=== PATIENT | male | born 1990 | race American Indian/Alaskan Native ===

== ENCOUNTER 2019-02-28 19:21 | Emergency (ER) | payer SELFPAY ==
[2019-02-28 19:30] VITALS: BP 122/68
--- NOTE | 2019-02-28 19:41 | Emergency Department Report ---
Suture/Staple Removal - HPI Chief Complaint: Laceration/Recheck/Suture Stated Complaint: STICHES REMOVED Time Seen by Provider: 02/28/19 19:28 When Sutures or [place] Placed: 8-10 Days Ago Wound Location: TO LOWER LIP ED Review of Systems ROS: Stated complaint: STICHES REMOVED Other details as noted in HPI Comment: All other systems reviewed and negative ED Past Medical Hx - Past Medical History Previous Medical History?: No - Surgical History Past Surgical History?: No - Social History Smoking Status: Current Every Day Smoker Substance Use Type: Alcohol Suture Removal Exam - Exam General: Vital signs noted. No distress. Alert and acting appropriately. Wound: No Pathologic Erythema, No Tenderness, No Drainage, No Pus, No Wound Dehiscence Other Systems: All other systems reviewed and are unremarkable. ED Course Vital Signs 02/28/19 19:27 Temperature 98.8 F Pulse Rate 85 Respiratory 18 Rate Blood Pressure 122/68 O2 Sat by Pulse 98 Oximetry ED Recheck MDM - Differential Diagnosis Suture/Staple Removal - Medical Decision Making SUTURES REMOVED WITHOUT DIFFICULTY Vital Signs (72 hours) 02/28/19 19:27 Temperature 98.8 F Pulse Rate 85 Respiratory 18 Rate Blood Pressure 122/68 O2 Sat by Pulse 98 Oximetry Critical care attestation.: If time is entered above; I have spent that time in minutes in the direct care of this critically ill patient, excluding procedure time. ED Disposition Clinical Impression: Visit for suture removal Disposition: DC-01 TO HOME OR SELFCARE Is pt being admited?: No Does the pt Need Aspirin: No Condition: Stable Instructions: Suture Removal (ED) Referrals: [facility] [Outside] - 3-5 Days Time of Disposition: 19:40
== END 2019-02-28 20:00 | disposition home or self-care (01) ==
LOC: ED 19:21
DX: T14.8XXD Other injury of unspecified body region, subsequent encounter (principal); Z53.21 Procedure and treatment not carried out due to patient leaving prior to being seen by health care provider

== ENCOUNTER 2021-01-24 20:26 | Emergency (ER) | payer SELFPAY | END 2021-01-25 08:00 | LOC: ED 20:26 | DX: Z00.8 Encounter for other general examination (principal); Z53.21 Procedure and treatment not carried out due to patient leaving prior to being seen by health care provider ==